=== PATIENT | male | born 1980 | race Caucasian/White ===

== ENCOUNTER 2016-04-29 15:21 | Emergency (ER) | payer OTHER ==
[~2016-04-29] VITALS: Ht 172.7 cm; Wt 81.7 kg
[2016-04-29 15:21] VITALS: BP 128/84
[2016-04-29] MEDS ORDERED: LEXAPRO 10 MG T10 M2 PO (15:26)
[2016-04-29] MEDS ORDERED: AMBIEN 10 MG TA10 MG PO ×2 (15:27→15:54)
[2016-04-29] MEDS ORDERED: LEXAPRO 10 MG T10 M1 PO (15:55)
== END 2016-04-29 16:01 | disposition home or self-care (01) ==
LOC: ER 15:21
DX: Z76.0 Encounter for issue of repeat prescription (principal); Z91.14 Patient's other noncompliance with medication regimen; F32.9 Major depressive disorder, single episode, unspecified

== ENCOUNTER 2016-05-04 13:20 | Emergency (ER) | payer OTHER ==
[~2016-05-04] VITALS: Ht 172.7 cm; Wt 81.7 kg
[~2016-05-04 13:20] MED LIST: AMBIEN 10 MG TA10 MG PO; LEXAPRO 10 MG T10 M1 PO; LEXAPRO 10 MG T10 M2 PO
[2016-05-04 14:27] LABS: URINE BILIRUBIN NEGATIVE (Negative); URINE BLOOD 1+ (Negative); URINE COLOR YELLOW; URINE GLUCOSE-RANDOM* NEGATIVE (Negative); URINE KETONES 1+ (Negative); URINE LEUKOCYTES-REFLEX NEGATIVE (Negative); URINE PROTEIN (DIPSTICK) NEGATIVE (Negative); URINE UROBILINOGEN 0.2 E.U./dl (0.2-1.0)
[2016-05-04 14:33] LABS: SQUAMOUS None Seen /LPF (0-3)
[2016-05-04 14:34] LABS: CASTS None Seen /LPF (None Seen); CRYSTALS None Seen /LPF (None Seen); URINE RBC 0-2 Rare /HPF (0-2); URINE WBC-REFLEX 0-5 Rare /HPF (0-5)
[2016-05-04 14:36] LABS: AMP/METHAMP Negative (Negative); BARBITURATES Negative (Negative); BENZODIAZEPINES Negative (Negative); COCAINE Negative (Negative); METHADONE Negative (Negative); OPIATES Negative (Negative); PCP Negative (Negative); THC Negative (Negative)
[2016-05-04 14:45] LABS: ABSOLUTE NEUTROPHILS 5.8 thou/uL (1.4-8.2); BASOPHILS 0.8 % (0.0-2.0); EOSINOPHILS 1.3 % (0.0-3.0); HEMATOCRIT 43.4 % (42.0-52.0); HEMOGLOBIN 15.4 gm/dL (14.0-18.0); LYMPHOCYTES 24.9 % (24.0-44.0); MCH 30.3 pg (26.0-34.0); MCHC 35.5 % (28.0-37.0); MCV 85.5 fL (80.0-100.0); MONOCYTES 6.5 % (1.0-8.0); PLATELET COUNT 173 thou/uL (150-400); POLYS 66.5 % (36.0-66.0); RBC 5.07 mil/uL (4.50-6.00); RDW 11.9 % (10.5-14.5); WBC 8.8 thou/uL (4.0-11.0)
[2016-05-04 14:46] LABS: MANUAL DIFF NO
[2016-05-04 14:58] LABS: CALCIUM 8.6 mg/dL (8.5-10.1); CREATININE 0.9 mg/dL (0.6-1.3)
[2016-05-04 15:12] LABS: ALBUMIN 3.6 g/dL (3.4-5.0); DIRECT BILIRUBIN 0.3 mg/dL (<0.1-0.3); TOTAL BILIRUBIN 2.1 mg/dL (<0.1-1.0); TOTAL PROTEIN 6.9 g/dL (6.4-8.2)
[2016-05-04 15:17] LABS: POTASSIUM 2.8 mmol/L (3.5-5.1)
[2016-05-04 16:33] VITALS: BP 124/72
== END 2016-05-04 17:01 | disposition home or self-care (01) ==
LOC: ER 13:20
PROVIDERS: Emergency Medicine
DX: S70.312A Abrasion, left thigh, initial encounter (principal); S70.311A Abrasion, right thigh, initial encounter; E87.6 Hypokalemia; M62.82 Rhabdomyolysis; R21 Rash and other nonspecific skin eruption; M25.521 Pain in right elbow; M25.561 Pain in right knee; M79.672 Pain in left foot; M79.671 Pain in right foot; F32.9 Major depressive disorder, single episode, unspecified; Z91.14 Patient's other noncompliance with medication regimen; X58.XXXA Exposure to other specified factors, initial encounter; Y93.89 Activity, other specified; Y92.89 Other specified places as the place of occurrence of the external cause; Y99.8 Other external cause status

== ENCOUNTER 2020-12-25 08:02 | Emergency (ER) | payer OTHER ==
[~2020-12-25] VITALS: Ht 172.7 cm; Wt 86.2 kg
[2020-12-25 08:02] VITALS: BP 120/84
[2020-12-25] MEDS ORDERED: PERIDEX15 ML MUCOUS MEM (09:08)
== END 2020-12-25 09:05 | disposition home or self-care (01) ==
LOC: ER 08:02
DX: K05.10 Chronic gingivitis, plaque induced (principal); F32.9 Major depressive disorder, single episode, unspecified

== ENCOUNTER 2021-01-12 17:30 | Emergency (ER) | payer OTHER ==
[~2021-01-12] VITALS: Ht 172.7 cm; Wt 77.1 kg
[~2021-01-12 17:30] MED LIST changes: +PERIDEX15 ML MUCOUS MEM
[2021-01-12] MEDS ORDERED: CEPHALEXIN500 MG PO (18:13)
[2021-01-12 19:09] VITALS: BP 121/74
== END 2021-01-12 19:11 | disposition home or self-care (01) ==
LOC: ER 17:30
DX: S90.821A Blister (nonthermal), right foot, initial encounter (principal); S90.822A Blister (nonthermal), left foot, initial encounter; M79.672 Pain in left foot; M79.671 Pain in right foot; F32.9 Major depressive disorder, single episode, unspecified; X58.XXXA Exposure to other specified factors, initial encounter; Y93.89 Activity, other specified; Y92.89 Other specified places as the place of occurrence of the external cause; Y99.8 Other external cause status

== ENCOUNTER 2021-04-14 07:12 | Emergency (ER) | payer OTHER ==
[~2021-04-14] VITALS: Ht 172.7 cm; Wt 81.7 kg
[~2021-04-14 07:12] MED LIST changes: +CEPHALEXIN500 MG PO
[2021-04-14 07:13] VITALS: BP 118/67
== END 2021-04-14 07:35 | disposition home or self-care (01) ==
LOC: ER 07:12
DX: S90.822A Blister (nonthermal), left foot, initial encounter (principal); S90.821A Blister (nonthermal), right foot, initial encounter; F32.9 Major depressive disorder, single episode, unspecified; X58.XXXA Exposure to other specified factors, initial encounter; Y93.89 Activity, other specified; Y92.89 Other specified places as the place of occurrence of the external cause; Y99.8 Other external cause status